=== PATIENT | female | born 1965 | race African-American/Black ===

== ENCOUNTER 2022-02-17 16:25 | Emergency (ER) | payer OTHER, MEDICAID ==
[~2022-02-17] VITALS: Ht 170.2 cm; Wt 81.0 kg
[2022-02-17] MEDS ORDERED: KETOROLAC 60MG/2ML VIAL IM ONE (17:00)
[2022-02-17] MEDS ORDERED: LORAZEPAM 1MG TABLET PO ONE (17:00)
[2022-02-17] MEDS ORDERED: ACETAMINOPHEN 325MG TABLET PO ONE (18:15)
[2022-02-17] MEDS ORDERED: ACET-2708 MT (19:03)
[2022-02-17 19:30] VITALS: BP 136/90
== END 2022-02-17 19:35 | disposition home or self-care (01) ==
LOC: ER 16:25
DX: M25.551 Pain in right hip (principal); M54.9 Dorsalgia, unspecified; M19.90 Unspecified osteoarthritis, unspecified site; W01.0XXA Fall on same level from slipping, tripping and stumbling without subsequent striking against object, initial encounter; Y93.9 Activity, unspecified; Y92.9 Unspecified place or not applicable
CPT/HCPCS: 72100; 72170; 99284; J1885

== ENCOUNTER 2022-12-19 14:02 | Emergency (ER) | payer MEDICARE, MEDICAID ==
[~2022-12-19] VITALS: Ht 175.3 cm; Wt 73.0 kg
[~2022-12-19 14:02] MED LIST: ACET-2708 MT
[2022-12-19 14:03] VITALS: BP 179/98
[2022-12-19 17:19] LABS: BASOPHILS % 0.8 % (0.0-2.0); EOSINOPHILS % 5.1 % (0.0-5.0); HEMATOCRIT. 38.8 % (36.0-48.0); HEMOGLOBIN. 12.7 g/dL (12.0-16.0); MEAN CORPUSCULAR HEMOGLOBIN 29.8 pg (28.0-32.0); MEAN CORPUSCULAR VOLUME 91.1 fL (81.0-99.0); MEAN PLATELET VOLUME 7.5 fl (7.4-10.4); MONOCYTES % 7.5 % (2.0-8.0); NEUTROPHILS % 38.6 % (40.0-76.0); PLATELET 257 x1000/uL (130-400); RED BLOOD CELL COUNT 4.25 mill/uL (4.2-5.4); RED CELL DISTRIBUTION WIDTH 12.9 % (11.6-14.6)
[2022-12-19 17:23] LABS: CHLORIDE 109 mEq/L (98-107)
[2022-12-19] MEDS ORDERED: ONDANSETRON 4MG ODT PO ONE (17:45)
[2022-12-19] MEDS ORDERED: ONDANSETRON 4MG ODT PO NR (18:00)
== END 2022-12-19 18:48 | disposition left against medical advice (07) ==
LOC: ER 14:25
DX: R11.2 Nausea with vomiting, unspecified (principal); R10.13 Epigastric pain; R42 Dizziness and giddiness; Z88.0 Allergy status to penicillin
CPT/HCPCS: 36415; 80053; 85025; 99283; Q0162